=== PATIENT | female | born 2000 | race Caucasian/White ===

== ENCOUNTER 2021-04-20 22:50 | Emergency (ER) | payer OTHER ==
[~2021-04-20 22:50] MED LIST: BENTYL 20MG TAB20 MG PO; ERYTHROMYCIN O3.5 GM OU; KEFLEX500 MG PO; ZOFRAN ODT 4 MG4 MG PO
[2021-04-21 00:28] LABS: HEMOGLOBIN 9.7 gm/dl (12.3-15.3); RED BLOOD COUNT 4.47 M/UL (4.00-5.10); WHITE BLOOD COUNT 8.2 K/UL (4.5-11.0)
[2021-04-21 00:44] LABS: BUN/CREATININE RATIO 6 (0-10)
[2021-04-21] MEDS ORDERED: OMNICEF 300 MG300 MG PO (02:07)
[2021-04-21] MEDS ORDERED: LODINE CAP 300300 MG PO (02:07)
[2021-04-21] MEDS ORDERED: ZOFRAN ODT 4 MG4 MG PO (02:07)
== END 2021-04-21 02:08 | disposition home or self-care (01) ==
LOC: ER1 22:50
PROVIDERS: Physician Assistant
DX: N39.0 Urinary tract infection, site not specified (principal); F17.290 Nicotine dependence, other tobacco product, uncomplicated
CPT/HCPCS: 80053; 81001; 83690; 84703; 85025; 87086; 99284

== ENCOUNTER 2021-11-20 06:31 | Emergency (ER) | payer OTHER ==
[~2021-11-20 06:31] MED LIST changes: +LODINE CAP 300300 MG PO; +OMNICEF 300 MG300 MG PO
[2021-11-20] MEDS ORDERED: AMOXICILLIN500 MG PO (07:05)
[2021-11-20] MEDS ORDERED: NAPROSYN500 MG PO (07:08)
== END 2021-11-20 07:43 | disposition home or self-care (01) ==
LOC: ER1 06:31
DX: K02.9 Dental caries, unspecified (principal); F17.200 Nicotine dependence, unspecified, uncomplicated
CPT/HCPCS: 96372; 99282; J1885